=== PATIENT | female | born 1975 | race Caucasian/White ===

== ENCOUNTER 2023-02-19 13:06 | Inpatient (IN) ==
[2023-02-19] MEDS ORDERED: LABETALOL HCL IV 5 MG/ML 20ML IV STA (13:22)
[2023-02-19] MEDS ORDERED: IOVERSOL 350 MG 125mL Prefilled Syringe IV ONE (13:26)
--- NOTE | 2023-02-19 13:29 | Emergency Department Note ---
History of Present Illness General Chief complaint: Illness Stated complaint: ILLNESS, URINARY SX Time Seen by Provider: 02/19/23 13:12 History of Present Illness 47-year-old female presents emergency department with an alteration mental status and onset of confusion that started potentially yesterday but was noticed by her coworkers more today. Patient reportedly had been drinking a significant amount of water in the past day and a there were 2 large bottles of water. Patient states that she also had sex on Friday but did not have a headache or any changes in mental status after sexual intercourse. Patient denies any drug use. Patient denies having a headache denies trauma to the head denies vomiting denies abdominal pain. Patient states she had burning with urination. Is unknown why the patient continue to drink significant amount of water but she does state that she feels thirsty. Patient denies any history of diabetes Home Medications Medication Instructions Recorded Confirmed Type lisinopril 20 1 tab PO QAM 02/19/23 02/19/23 History mg-hydrochlorothiazide 12.5 mg tablet Allergies Allergy/AdvReac Type Severity Reaction Status Date / Time No Known Allergies Allergy Verified 02/19/23 14:51 Past Med/Surg History Medical History (Updated 02/19/23 @ 15:17 by DUYEN Subramanian) Electrolyte imbalance Hypokalemia Hypomagnesemia Social History Smoking Status: Current every day smoker Preferred Language: Kosovan Feels Safe at Home: Yes Immunizations: Past medical history is unknown Physical Exam Vital Signs Vital Signs - 24 hr 02/19/23 13:19 02/19/23 13:36 02/19/23 13:30 Temperature 36.5 C Temperature Source Oral Pulse Rate 103 H 96 H Pulse Rate [Apical] Respiratory Rate 13 Respiratory Effort / Characteristics Blood Pressure 178/114 H 165/108 H Blood Pressure [Left Arm] Blood Pressure Mean 135 134 Blood Pressure Mean [Left Arm] Pulse Oximetry 98 Oxygen Delivery Method Room Air Sepsis Recent Fever Within 48 Hours No Sepsis New/Unexplained Change in Mental Status N/A Sepsis Action Taken by Nursing No Action Required 02/19/23 13:30 02/19/23 13:44 02/19/23 13:45 Temperature Temperature Source Pulse Rate 100 H 96 H 91 H Pulse Rate [Apical] Respiratory Rate 18 21 23 Respiratory Effort / Characteristics Blood Pressure 165/108 H 160/113 H 157/107 H Blood Pressure [Left Arm] Blood Pressure Mean 127 128 123 Blood Pressure Mean [Left Arm] Pulse Oximetry 99 95 Oxygen Delivery Method Sepsis Recent Fever Within 48 Hours Sepsis New/Unexplained Change in Mental Status Sepsis Action Taken by Nursing 02/19/23 14:54 02/19/23 15:07 02/19/23 15:18 Temperature Temperature Source Pulse Rate 74 Pulse Rate [Apical] 75 78 Respiratory Rate 20 14 Respiratory Effort / Characteristics Non-Labored Blood Pressure Blood Pressure [Left Arm] 160/107 H Blood Pressure Mean Blood Pressure Mean [Left Arm] 124 Pulse Oximetry 97 97 97 Oxygen Delivery Method Room Air Room Air Room Air Sepsis Recent Fever Within 48 Hours Sepsis New/Unexplained Change in Mental Status Sepsis Action Taken by Nursing GENERAL: Patient is awake alert in no acute distress patient is resting comfortably and showing no signs of anxiety EYES: The conjunctivae are clear. The pupils are round and reactive. EARS, NOSE, MOUTH AND THROAT: The nose is without any evidence of any deformity. Mucous membranes are moist. Tongue is midline. NECK: The neck is nontender and supple. RESPIRATORY: Normal respiratory effort is noted there is no evidence of wheezing rhonchi or rales CARDIOVASCULAR: Regular rate and rhythm noted there no murmurs rubs or gallops normal S1 normal S2. GASTROINTESTINAL: The abdomen is soft. Abdomen is nontender. PELVIS: The Pelvis is stable. No tenderness to palpation is noted. BACK: No midline tenderness or or step-off noted range of motion in flexion extension as well as rotation no signs of muscle spasm noted MUSCULOSKELETAL/EXTREMITIES: There is no evidence of gross deformity full range of motion is noted in the hips and shoulders. SKIN: There is no obvious evidence of any rash. There are no petechiae, pallor or cyanosis noted. NEUROLOGIC: Patient is awake alert and oriented x3 strength is symmetric patellar reflexes are 2+ bilaterally Course Reevaluation(s) Reevaluation #1: Repeat examination, the patient is alert the preferential gaze to the right and she also states that she is very thirsty.; She was given 1 dose of labetalol and her blood pressure is less than 160 systolic Time: 14:17 Reevaluation #2: Patient continues to have some evidence of confusion. Patient has a right-sided gaze. Patient will track to the left side. Patient continues to state she is thirsty Time: 15:13 Consultations Consultation #1: This case was discussed with the [facility] Hospitalist for admission for what I suspect is water intoxication and alteration in mental status Time: 15:13 Administered Medications Discontinued Medications Ioversol (Ioversol 350 Mg 125ml Prefilled Syringe) 120 ml IV ONCE ONE Stop: 02/19/23 13:27 Last Admin: 02/19/23 13: Dose: 120 ml Documented By: KADY Labetalol HCl (Labetalol Hcl Iv 5 Mg/Ml 20ml) 10 mg IV NOW STA Stop: 02/19/23 13:23 Last Admin: 02/19/23 13: Dose: 10 mg Documented By: YAMIL Co-signed By: MARILEE Critical Care Time Critical Care Time: Yes Total Critical Care Time: 60 I have personally spent greater than 60 minutes of critical care time in the direct management of this patient. This includes bedside care, interpretation of diagnostic studies, and testing, discussion with consultants, patient, and family members, and other required patient management activities. These minutes are in excess of all separately billable procedures. Medical Decision Making Medical Records Attestation: I reviewed the patient's medical records. Home Medications Current Medication List: was personally reviewed by me Laboratory Data Attestation: I reviewed the patient's lab results. 02/19/23 13:20 02/19/23 13:20 Lab Results 02/19/23 02/19/23 02/19/23 Range/Units 13:20 13:20 13:20 WBC 7.53 (4.8-10.8) K/ul RBC 4.30 (4.20-5.40) M/uL Hgb 14.1 (12.0-16.0) g/dl POC Hgb (12.0-16.0) g/dl Hct 39.4 (37.0-47.0) % POC Hct (37-47) % MCV 91.6 (80.0-100.0) fL MCH 32.8 (25.0-34.0) pg MCHC 35.8 (32.0-36.0) g/dL RDW Std Deviation 42.6 (36.4-46.3) fL RDW Coeff of Ran 12.7 (11.5-14.5) % Plt Count 313 (130-400) K/uL MPV 9.0 L (9.4-12.4) fL Immature Gran % (Auto) 0.4 % Neut % (Auto) 73.6 % Lymph % (Auto) 17.3 % [place] % (Auto) 8.1 % Eos % (Auto) 0.1 % Baso % (Auto) 0.5 % Neut # (Auto) 5.54 (1.40-6.50) K/uL Lymph # (Auto) 1.30 (1.2-3.4) K/uL [place] # (Auto) 0.61 H (0.11-0.59) K/uL Eos # (Auto) 0.01 (0-0.50) K/uL Baso # (Auto) 0.04 (0-0.2) K/uL Immature Gran # (Auto) 0.03 (0.01-0.20) K/uL PT 11.4 (9.0-12.0) Seconds INR 1.0 (0.9-1.1) APTT 27.0 (21.0-31.0) Seconds PTT Ratio 1.0 POC Sodium (135-144) mmol/L Sodium 123 L (136-145) mmol/L POC Potassium (3.3-5.0) mmol/L Potassium 3.4 L (3.5-5.1) mmol/L POC Chloride (101-112) mmol/L Chloride 92 L (98-107) mmol/L Carbon Dioxide 21 (21-32) mmol/L POC Total CO2 (24-31) mmol/L Anion Gap 10 (3-11) POC Anion Gap (16-25) mmol/L POC BUN (7-18) mg/dl BUN 9 (6-23) mg/dl Creatinine 0.68 (0.6-1.2) mg/dl POC Creatinine (0.6-1.3) mg/dl Est Cr Clr Drug Dosing 86.2 ml/min Est GFR ( Amer) 122.4 ml/min Est GFR (Non-Af Amer) 105.6 ml/min BUN/Creatinine Ratio 13.2 (10-20) Glucose 117 H (70-99(Fasting)) mg/dl POC Glucose (70-99) mg/dl POC Glucose (other) (70-99) mg/dl Osmolality (280-300) mOsm/kg Calcium 8.8 (8.6-10.3) mg/dl POC Ioniz Calcium Iveth (1.12-1.32) mmol/l Magnesium 1.6 L (1.7-2.4) mg/dl Total Bilirubin 0.6 (0.2-1.0) mg/dl AST 16 (13-39) U/L ALT 7 (7-52) U/L Alkaline Phosphatase 43 (34-104) U/L Troponin I High Sens 3.2 (0-14) pg/ml Total Protein 6.9 (6.0-8.3) gm/dl Albumin 4.3 (3.4-5.0) gm/dl Globulin 2.6 (2.5-4.0) gm/dl Albumin/Globulin Ratio 1.7 (0.9-2) HCG, Qual (Negative) Urine Opiates Screen (Neg) Ur Methadone, Qual (Neg) Urine Barbiturates (Neg) Ur Phencyclidine (PCP) (Neg) U Amphetamin/Meth Scrn (Neg) MDMA (Ecstasy) Screen (Neg) U Benzodiazepines Scrn (Neg) Ur Cocaine Metabolite (Neg) U Marijuana (THC) Screen (Neg) 02/19/23 02/19/23 02/19/23 Range/Units 13:20 13:20 13:25 WBC (4.8-10.8) K/ul RBC (4.20-5.40) M/uL Hgb (12.0-16.0) g/dl POC Hgb (12.0-16.0) g/dl Hct (37.0-47.0) % POC Hct (37-47) % MCV (80.0-100.0) fL MCH (25.0-34.0) pg MCHC (32.0-36.0) g/dL RDW Std Deviation (36.4-46.3) fL RDW Coeff of Ran (11.5-14.5) % Plt Count (130-400) K/uL MPV (9.4-12.4) fL Immature Gran % (Auto) % Neut % (Auto) % Lymph % (Auto) % [place] % (Auto) % Eos % (Auto) % Baso % (Auto) % Neut # (Auto) (1.40-6.50) K/uL Lymph # (Auto) (1.2-3.4) K/uL [place] # (Auto) (0.11-0.59) K/uL Eos # (Auto) (0-0.50) K/uL Baso # (Auto) (0-0.2) K/uL Immature Gran # (Auto) (0.01-0.20) K/uL PT (9.0-12.0) Seconds INR (0.9-1.1) APTT (21.0-31.0) Seconds PTT Ratio POC Sodium (135-144) mmol/L Sodium (136-145) mmol/L POC Potassium (3.3-5.0) mmol/L Potassium (3.5-5.1) mmol/L POC Chloride (101-112) mmol/L Chloride (98-107) mmol/L Carbon Dioxide (21-32) mmol/L POC Total CO2 (24-31) mmol/L Anion Gap (3-11) POC Anion Gap (16-25) mmol/L POC BUN (7-18) mg/dl BUN (6-23) mg/dl Creatinine (0.6-1.2) mg/dl POC Creatinine (0.6-1.3) mg/dl Est Cr Clr Drug Dosing ml/min Est GFR ( Amer) ml/min Est GFR (Non-Af Amer) ml/min BUN/Creatinine Ratio (10-20) Glucose (70-99(Fasting)) mg/dl POC Glucose 143 H (70-99) mg/dl POC Glucose (other) (70-99) mg/dl Osmolality 256 L (280-300) mOsm/kg Calcium (8.6-10.3) mg/dl POC Ioniz Calcium Iveth (1.12-1.32) mmol/l Magnesium (1.7-2.4) mg/dl Total Bilirubin (0.2-1.0) mg/dl AST (13-39) U/L ALT (7-52) U/L Alkaline Phosphatase (34-104) U/L Troponin I High Sens (0-14) pg/ml Total Protein (6.0-8.3) gm/dl Albumin (3.4-5.0) gm/dl Globulin (2.5-4.0) gm/dl Albumin/Globulin Ratio (0.9-2) HCG, Qual Negative (Negative) Urine Opiates Screen (Neg) Ur Methadone, Qual (Neg) Urine Barbiturates (Neg) Ur Phencyclidine (PCP) (Neg) U Amphetamin/Meth Scrn (Neg) MDMA (Ecstasy) Screen (Neg) U Benzodiazepines Scrn (Neg) Ur Cocaine Metabolite (Neg) U Marijuana (THC) Screen (Neg) 02/19/23 02/19/23 Range/Units 13:27 14:36 WBC (4.8-10.8) K/ul RBC (4.20-5.40) M/uL Hgb (12.0-16.0) g/dl POC Hgb 15.0 (12.0-16.0) g/dl Hct (37.0-47.0) % POC Hct 44 (37-47) % MCV (80.0-100.0) fL MCH (25.0-34.0) pg MCHC (32.0-36.0) g/dL RDW Std Deviation (36.4-46.3) fL RDW Coeff of Ran (11.5-14.5) % Plt Count (130-400) K/uL MPV (9.4-12.4) fL Immature Gran % (Auto) % Neut % (Auto) % Lymph % (Auto) % [place] % (Auto) % Eos % (Auto) % Baso % (Auto) % Neut # (Auto) (1.40-6.50) K/uL Lymph # (Auto) (1.2-3.4) K/uL [place] # (Auto) (0.11-0.59) K/uL Eos # (Auto) (0-0.50) K/uL Baso # (Auto) (0-0.2) K/uL Immature Gran # (Auto) (0.01-0.20) K/uL PT (9.0-12.0) Seconds INR (0.9-1.1) APTT (21.0-31.0) Seconds PTT Ratio POC Sodium 124 L (135-144) mmol/L Sodium (136-145) mmol/L POC Potassium 3.3 (3.3-5.0) mmol/L Potassium (3.5-5.1) mmol/L POC Chloride 90 L (101-112) mmol/L Chloride (98-107) mmol/L Carbon Dioxide (21-32) mmol/L POC Total CO2 24 (24-31) mmol/L Anion Gap (3-11) POC Anion Gap 14.0 L (16-25) mmol/L POC BUN 9 (7-18) mg/dl BUN (6-23) mg/dl Creatinine (0.6-1.2) mg/dl POC Creatinine 0.7 (0.6-1.3) mg/dl Est Cr Clr Drug Dosing ml/min Est GFR ( Amer) ml/min Est GFR (Non-Af Amer) ml/min BUN/Creatinine Ratio (10-20) Glucose (70-99(Fasting)) mg/dl POC Glucose (70-99) mg/dl POC Glucose (other) 125 H (70-99) mg/dl Osmolality (280-300) mOsm/kg Calcium (8.6-10.3) mg/dl POC Ioniz Calcium Iveth 1.10 L (1.12-1.32) mmol/l Magnesium (1.7-2.4) mg/dl Total Bilirubin (0.2-1.0) mg/dl AST (13-39) U/L ALT (7-52) U/L Alkaline Phosphatase (34-104) U/L Troponin I High Sens (0-14) pg/ml Total Protein (6.0-8.3) gm/dl Albumin (3.4-5.0) gm/dl Globulin (2.5-4.0) gm/dl Albumin/Globulin Ratio (0.9-2) HCG, Qual (Negative) Urine Opiates Screen Neg (Neg) Ur Methadone, Qual Neg (Neg) Urine Barbiturates Neg (Neg) Ur Phencyclidine (PCP) Neg (Neg) U Amphetamin/Meth Scrn Neg (Neg) MDMA (Ecstasy) Screen Neg (Neg) U Benzodiazepines Scrn Neg (Neg) Ur Cocaine Metabolite Neg (Neg) U Marijuana (THC) Screen Neg (Neg) Imaging Data Attestation: I personally reviewed and interpreted this imaging study as follows : Radiologist's Impression: Chest X-Ray 02/19/23 13:19 XR chest 1V portable HISTORY: neuro deficit, acute stroke suspected COMPARISON: Chest 07/29/2011 FINDINGS: The lungs are clear. Cardiac silhouette is normal in size. No pleural effusions. No pneumothorax. IMPRESSION: No acute process. ACT 112: Negative or not required by law. Electronically signed by: Devang Ruiz M.D. 02/19/2023 2:[address] 02/19/23 13:[address] DOSE: HISTORY: neuro deficit, acute stroke suspected TECHNIQUE: Multiaxial CT images of the head were performed without the use of intravenous contrast. Automated exposure control was utilized for this study. A dose lowering technique was utilized adhering to the principles of ALARA. Comparison: None. Findings: The paranasal sinuses and mastoid air cells are clear. The calvarium a nd skull base are intact. The ventricles and sulci are within normal limits. There is no mass, hematoma, midline shift, or acute infarct. Impression: No acute intracranial abnormality. ACT 112: Negative or not required by law. Electronically signed by: Devang Ruiz M.D. 02/19/2023 2:35 PM Head CTA 02/19/23 13:19 CT angio head w con CLINICAL HISTORY: 47 years-old Female with neuro deficit, acute stroke suspected. Acute stroke like symptoms COMPARISON STUDY: Head CT of same day TECHNIQUE: Following the IV administration of 120 cc of Optiray, CT angiogram of the brain was performed from the skull base to the vertex. Images are reviewed in the axial, sagittal, and coronal planes. 3-D MIPS images are created and assessed. IV contrast was administered without complication. All measurements were obtained according to NASCET criteria. A dose lowering technique was utilized adhering to the principles of ALARA. CT DOSE: 1217.58 mGy.cm FINDINGS: CT ANGIOGRAM OF THE BRAIN: The imaged bilateral internal carotid arteries are patent. 2 mm saccular outpouching involves the left carotid terminus on image 81 series 5, likely a vascular infundibulum. The bilateral anterior and middle cerebral arteries are also patent. The vertebrobasilar system and posterior cerebral arteries are widely patent. There is no aneurysm, high-grade stenosis, or proximal branch occlusion identified. Dural sinuses appear patent. IMPRESSION: Normal CTA of the head. ACT 112: Negative or not required by law. The above report was generated using voice recognition software. It may contain grammatical, syntax or spelling errors. Electronically signed by: Minesh Dodge M.D. 02/19/2023 2:39 PM Neck CTA 02/19/23 13:19 CT ANGIOGRAPHY OF THE NECK WITH CONTRAST CLINICAL HISTORY: neuro deficit, acute stroke suspected COMPARISON STUDY: No previous studies for comparison. Technique: CT angiography of the carotid and vertebral arteries was obtained using Optiray and 3D reconstruction on an independent workstation. NASCET criteria was utilized. Automated exposure control was utilized for the study. A dose lowering technique was utilized adhering to the principles of ALARA. Findings: Visualized portions of the lung apices are unremarkable. There is no cervical lymphadenopathy. No cervical spine fracture is present. The bilateral common carotid, cervical internal carotid and vertebral arteries are patent. There is no dissection or stenosis within these vessels. There is no aneurysm within the neck. There is minimal plaque within the right carotid bifurcation. CTA of the head will be reported separately. IMPRESSION: No stenosis or dissection within the bilateral common carotid, cervical internal carotid or vertebral arteries. ACT 112: Negative or not required by law. Electronically signed by: Freddy Toledo M.D. 02/19/2023 2:36 PM ECG Data Attestation: I personally reviewed and interpreted this ECG as follows: MDM Narrative Medical decision making differential diagnosis includes stroke, intracranial hem orrhage, brain tumor, water medication, drug use, hypoglycemia, urinary tract infection Plan is to activate a stroke alert, emergently have the patient go to CT. Patient was also given 1 dose of IV labetalol due to hypertensive crisis EMS medical report was reviewed by me Impression & Plan Water intoxication, Acute confusion, Acute hyponatremia Discharge Plan Visit Data Chief Complaint: Illness Stated Complaint: ILLNESS, URINARY SX ED Provider: Eric Iyer Discharge Problem: Water intoxication, Acute confusion, Acute hyponatremia Patient Disposition: Admitted As Inpatient Forms Stand Alone Forms: My [facility] Play It Interactive Prescriptions Prescriptions: No Action lisinopril-hydrochlorothiazide 20-12.5 mg tablet 1 tab PO QAM Referrals Referrals: John Goins III, MD [Physician] -
[2023-02-19 13:41] LABS: iSTAT Creatinine 0.7 mg/dl (0.6-1.3); iSTAT Ionized Calcium 1.1 mmol/l (1.12-1.32); iSTAT Potassium 3.3 mmol/L (3.3-5.0)
[2023-02-19 13:49] LABS: Basophils # (auto) 0.04 K/uL (0-0.2); Basophils % (auto) 0.5 %; Eosinophils # (auto) 0.01 K/uL (0-0.50); Eosinophils % (auto) 0.1 %; Hematocrit (blood only) 39.4 % (37.0-47.0); Hemoglobin 14.1 g/dl (12.0-16.0); Immature Granulocytes # (auto) 0.03 K/uL (0.01-0.20); Immature Granulocytes % (auto) 0.4 %; Lymphocytes % (auto) 17.3 %; Mean Corpuscular Hemoglobin 32.8 pg (25.0-34.0); Mean Corpuscular Hgb Conc 35.8 g/dL (32.0-36.0); Mean Corpuscular Volume 91.6 fL (80.0-100.0); Monocytes # (auto) 0.61 K/uL (0.11-0.59); Monocytes % (auto) 8.1 %; Neutrophils # (auto) 5.54 K/uL (1.40-6.50); Neutrophils % (auto) 73.6 %; Platelet Count 313 K/uL (130-400); RDW Coefficient of Variation 12.7 % (11.5-14.5); RDW Standard Deviation 42.6 fL (36.4-46.3); White Blood Count 7.53 K/ul (4.8-10.8)
[2023-02-19 14:06] LABS: Troponin I High Sensitivity 3.2 pg/ml (0-14)
[2023-02-19 14:08] LABS: Prothrombin Time 11.4 Seconds (9.0-12.0)
[2023-02-19 14:25] LABS: Albumin Level 4.3 gm/dl (3.4-5.0); Bilirubin,Total 0.6 mg/dl (0.2-1.0); Calcium 8.8 mg/dl (8.6-10.3); Magnesium 1.6 mg/dl (1.7-2.4); Potassium 3.4 mmol/L (3.5-5.1)
[2023-02-19 14:31] LABS: Albumin Globulin Ratio 1.7 (0.9-2); BUN Creatinine Ratio 13.2 (10-20); Creatinine Clr Calc Pharmacy 86.2 ml/min; Est GFR (African American) 122.4 ml/min; Est GFR (Non-African American) 105.6 ml/min; Globulin 2.6 gm/dl (2.5-4.0); Total Protein 6.9 gm/dl (6.0-8.3)
--- NOTE | 2023-02-19 14:36 | CT Scan Report ---
HEAD CT NONCONTRAST CT DOSE: HISTORY: neuro deficit, acute stroke suspected TECHNIQUE: Multiaxial CT images of the head were performed without the use of intravenous contrast. A utomated exposure control was utilized for this study. A dose lowering technique was utilized adheri ng to the principles of ALARA. Comparison: None. Findings: The paranasal sinuses and mastoid air cells are clear. The calvarium and skull base are int act. The ventricles and sulci are within normal limits. There is no mass, hematoma, midline shift, or acute infarct. Impression: No acute intracranial abnormality. ACT 112: Negative or not required by law. Electronically signed by: Devang Ruiz M.D. 02/19/2023 2:35 PM
--- NOTE | 2023-02-19 14:37 | CT Scan Report ---
CT ANGIOGRAPHY OF THE NECK WITH CONTRAST CLINICAL HISTORY: neuro deficit, acute stroke suspected COMPARISON STUDY: No previous studies for comparison. Technique: CT angiography of the carotid and vertebral arteries was obtained using Optiray and 3D rec onstruction on an independent workstation. NASCET criteria was utilized. Automated exposure control was utilized for the study. A dose lowering technique was utilized adhering to the principles of ALA RA. Findings: Visualized portions of the lung apices are unremarkable. There is no cervical lymphadenopat hy. No cervical spine fracture is present. The bilateral common carotid, cervical internal carotid an d vertebral arteries are patent. There is no dissection or stenosis within these vessels. There is no aneurysm within the neck. There is minimal plaque within the right carotid bifurcation. CTA of the h ead will be reported separately. IMPRESSION: No stenosis or dissection within the bilateral common carotid, cervical internal carotid or vertebral arteries. ACT 112: Negative or not required by law. Electronically signed by: Freddy Toledo M.D. 02/19/2023 2:36 PM
--- NOTE | 2023-02-19 14:41 | CT Scan Report ---
CT angio head w con CLINICAL HISTORY: 47 years-old Female with neuro deficit, acute stroke suspected. Acute stroke lik e symptoms COMPARISON STUDY: Head CT of same day TECHNIQUE: Following the IV administration of 120 cc of Optiray, CT angiogram of the brain was perfor med from the skull base to the vertex. Images are reviewed in the axial, sagittal, and coronal planes . 3-D MIPS images are created and assessed. IV contrast was administered without complication. All me asurements were obtained according to NASCET criteria. A dose lowering technique was utilized adherin g to the principles of ALARA. CT DOSE: 1217.58 mGy.cm FINDINGS: CT ANGIOGRAM OF THE BRAIN: The imaged bilateral internal carotid arteries are patent. 2 mm saccular outpouching involves the lef t carotid terminus on image 81 series 5, likely a vascular infundibulum. The bilateral anterior and m iddle cerebral arteries are also patent. The vertebrobasilar system and posterior cerebral arteries a re widely patent. There is no aneurysm, high-grade stenosis, or proximal branch occlusion identified. Dural sinuses appear patent. IMPRESSION: Normal CTA of the head. ACT 112: Negative or not required by law. The above report was generated using voice recognition software. It may contain grammatical, syntax o r spelling errors. Electronically signed by: Minesh Dodge M.D. 02/19/2023 2:39 PM
--- NOTE | 2023-02-19 15:00 | XRay Report ---
XR chest 1V portable HISTORY: neuro deficit, acute stroke suspected COMPARISON: Chest 07/29/2011 FINDINGS: The lungs are clear. Cardiac silhouette is normal in size. No pleural effusions. No pneumot horax. IMPRESSION: No acute process. ACT 112: Negative or not required by law. Electronically signed by: Devang Ruiz M.D. 02/19/2023 2:59 PM
[2023-02-19] MEDS ORDERED: ALUMINUM/MAGNESIUM SUSP 30 ML UDC PO PRN (15:02)
[2023-02-19] MEDS ORDERED: ACETAMINOPHEN 325 MG TAB PO PRN (15:02)
[2023-02-19] MEDS ORDERED: MAGNESIUM HYDROXIDE SUSP 30 ML UDC PO PRN (15:02)
[2023-02-19] MEDS ORDERED: ONDANSETRON INJ 2 MG/ML 2 ML VIAL IV PRN (15:02)
[2023-02-19] MEDS ORDERED: POLYETHYLENE (MIRALAX) 17 GM PACK PO PRN (15:02)
--- NOTE | 2023-02-19 15:20 | History & Physical Report ---
Date of Service February 19, 2023 Assessment & Plan (1) Acute confusion: (2) Acute hyponatremia: (3) Electrolyte imbalance: (4) Hypokalemia: (5) Hypomagnesemia: (6) HTN (hypertension): Plan 47 year old presents with AMS, diaphoresis, increased thirst. No recent travel or outdoor vacations. E-lyte imbalance with Hyponatremia 124, HypoKalemia 3.4, HypoMg+ 1.6. Q 6 serum sodium, strict fluid restriction 1200mL, replace Mg+ and K+, hold Lisinopril/HCTZ as suspect Thiazide-induced hyponatremia. Head CT negative. Hcg Negative; no perimenopausal symptoms. Altered mental status: Acute hyponatremia: Suspect Thiazide-induced; takes Lisinopril/HCTZ; Hold Drinking 4 liters of water today; mental status resolving back to baseline. Serum Na+ 124; Q6 serum sodium Head CT and head/neck CTA: negative Urine NA+ 39, Urine Osmololity pending Hcg Negative; no perimenopausal symptoms. Strict Fluid restriction 1200mL/day; reassess restriction tomorrow Should Sodium not correct/worsen; consider Nephro input Electrolyte Imbalance: Hypokalemia: Hypomagnesemia: K+: 3.4; replace with 40 PO; trend in AM M.6; replace with 2 G IV; trend in AM No ectopy on ECG HTN: BP on arrival 180/100; Labetalol 10 mg IV given in ED 159/98 during my examination Takes Lisinopril/HCTZ; suspect cause of Hyponatremia; hold for now Disposition: PCP: Dr. Zuniga Code Status: Full Code VTE Prophylaxis: Lovenox SQ I spent a total of 88 minutes coordinating, documenting, and providing care for this patient excluding time spent in the performance of separately billed services. All of the aforementioned completed while collaborating with the assigned attending physician for a full treatment plan. Please see their addendum for further details. History of Present Illness Chief Complaint: increased thirst and dysuria; electrolyte imbalance Primary Care Provider: Michell Zuniga MD Ms. Curran is a 47 year old female that presents to the [facility] today via EMS after her co-workers noticed that she had altered mental status. She said this morning she had some vaginal itching thinking she had a UTI and by mid- morning she became diaphoretic, describes an increased HR and lethargic. Was hypertensive in the ED SBP > 180; Labetalol 10 mg administered x1 with positive response.Otherwise nothing abnormal with her routine over the past few weeks. On Friday she went on the second day with a man did try a new IPA beer. She did wake up dehydrated on Friday. Does follow with her PCP who has labs ordered but she has not gotten them yet. Had a recent mammogram that showed dense tissue and has a follow-up 07/19. Does not fast or follow any strict diet regimen. No chance of and has been abstinent outside of Friday for 1 year. Denies any psychiatric, cancer, stroke, heart attack, or recent illness with fevers. Denies alcohol, or recreational drug use; is a daily smoker. No perimenopausal symptoms. Abnormal labs include: Hyponatremic 124, hypokalemic 3.4, Hypomagnesemia 1.6, Ur ine Na+ 39, Urine osmolality pending. She does take Lisinopril/HCTZ for HTN. Hcg negative. On examination, no JVP, no ascites, no ectopy. She does take Lisinopril/HCTZ as an outpatient. Suspect hyponatremia related to thiazide use. Will hold HCTZ/Lisinopril and replace K+ and Mg+ with fluid restriction. Q6 Serum Sodium checks; if no improvement, consider Nephrology input. Patient will be admitted for further evaluation and management. Please see A/P for further details. Allergies Allergy/AdvReac Type Severity Reaction Status Date / Time No Known Allergies Allergy Verified 02/19/23 14:51 Home Medications Medication Instructions Recorded Confirmed Type lisinopril 20 1 tab PO QAM 02/19/23 02/19/23 History mg-hydrochlorothiazide 12.5 mg tablet Past Med/Surg History Medical History (Updated 02/19/23 @ 16:15 by DUYEN Subramanian) Electrolyte imbalance HTN (hypertension) Hypokalemia Hypomagnesemia Surgical History (Updated 02/19/23 @ 16:22 by DUYEN Subramanian) No pertinent past surgical history Family History (Updated 02/19/23 @ 16:22 by DUYEN Subramanian) Other Dyslipidemia Hypertension Social History Smoking Status: Current every day smoker Preferred Language: Lithuanian Feels Safe at Home: Yes Review of Systems Review of Systems: Neuro: (-) Falls, trauma, slurred speech HEENT: (-) SALAZAR, dizziness, dysphagia, visual or auditory changes CV: (-) CP, palpitations, swelling Resp: (-) SOB GI: (-) appetite changes, N/V/D, bowel changes : (-) urinary changes; some dysuria this AM Skin: (-) rashes Psych: (-) anxiety, depression Physical Exam Physical Exam: Neuro: AAOx4, PERRLA, no aphagia, memory changes, CNII-XII grossly intact HEENT: head normocephalic, moist mucus membranes CV: S1/S2, (-) M/G/R, (-) edema, cap refill < 3 seconds (-) JVP Resp: Lungs CTA in all shannon. On RA GI: Abdomen S/NT/ND, Ax4 bowel sounds, (-) CVA tenderness (-) Ascites Musculoskeletal: 5/5 B/L UE strength, 5/5 B/L LE strength. No gait disturbance Skin: (-) rashes , (-) erythema. Psych: euthymic mood Results & Data Results & Data Vital Signs (Past 12 Hours) Vital Signs Temp Pulse Pulse Resp BP Pulse Ox O2 Del Method 02/19/23 14:54 75 20 97 Room Air 02/19/23 13:45 91 H 23 157/107 H 95 02/19/23 13:44 96 H 21 160/113 H 02/19/23 13:30 100 H 18 165/108 H 99 02/19/23 13:30 165/108 H 02/19/23 13:36 36.5 C 96 H 13 178/114 H 98 Room Air 02/19/23 13:19 103 H Laboratory Results Short CBC 02/19/23 Range/Units 13:20 WBC 7.53 (4.8-10.8) K/ul Hgb 14.1 (12.0-16.0) g/dl Hct 39.4 (37.0-47.0) % Plt Count 313 (130-400) K/uL BMP 02/19/23 13:20 Sodium 123 L Potassium 3.4 L Chloride 92 L Carbon Dioxide 21 BUN 9 Creatinine 0.68 Glucose 117 H Calcium 8.8 Liver Function 02/19/23 Range/Units 13:20 Total Bilirubin 0.6 (0.2-1.0) mg/dl AST 16 (13-39) U/L ALT 7 (7-52) U/L Alkaline Phosphatase 43 (34-104) U/L Albumin 4.3 (3.4-5.0) gm/dl Diagnostic Findings Chest X-Ray 02/19/23 13:19 XR chest 1V portable HISTORY: neuro deficit, acute stroke suspected COMPARISON: Chest 07/29/2011 FINDINGS: The lungs are clear. Cardiac silhouette is normal in size. No pleural effusions. No pneumothorax. IMPRESSION: No acute process. ACT 112: Negative or not required by law. Electronically signed by: Devang Ruiz M.D. 02/19/2023 2:[address] 02/19/23 13:[address] DOSE: HISTORY: neuro deficit, acute stroke suspected TECHNIQUE: Multiaxial CT images of the head were performed without the use of intravenous contrast. Automated exposure control was utilized for this study. A dose lowering technique was utilized adhering to the principles of ALARA. Comparison: None. Findings: The paranasal sinuses and mastoid air cells are clear. The calvarium and skull base are intact. The ventricles and sulci are within normal limits. There is no mass, hematoma, midline shift, or acute infarct. Impression: No acute intracranial abnormality. ACT 112: Negative or not required by law. Electronically signed by: Devang Ruiz M.D. 02/19/2023 2:35 PM Head CTA 02/19/23 13:19 CT angio head w con CLINICAL HISTORY: 47 years-old Female with neuro deficit, acute stroke suspecte d. Acute stroke like symptoms COMPARISON STUDY: Head CT of same day TECHNIQUE: Following the IV administration of 120 cc of Optiray, CT angiogram of the brain was performed from the skull base to the vertex. Images are reviewed in the axial, sagittal, and coronal planes. 3-D MIPS images are created and assessed. IV contrast was administered without complication. All measurements were obtained according to NASCET criteria. A dose lowering technique was utilized adhering to the principles of ALARA. CT DOSE: 1217.58 mGy.cm FINDINGS: CT ANGIOGRAM OF THE BRAIN: The imaged bilateral internal carotid arteries are patent. 2 mm saccular outpouching involves the left carotid terminus on image 81 series 5, likely a vascular infundibulum. The bilateral anterior and middle cerebral arteries are also patent. The vertebrobasilar system and posterior cerebral arteries are widely patent. There is no aneurysm, high-grade stenosis, or proximal branch occlusion identified. Dural sinuses appear patent. IMPRESSION: Normal CTA of the head. ACT 112: Negative or not required by law. The above report was generated using voice recognition software. It may contain grammatical, syntax or spelling errors. Electronically signed by: Minesh Dodge M.D. 02/19/2023 2:39 PM Neck CTA 02/19/23 13:19 CT ANGIOGRAPHY OF THE NECK WITH CONTRAST CLINICAL HISTORY: neuro deficit, acute stroke suspected COMPARISON STUDY: No previous studies for comparison. Technique: CT angiography of the carotid and vertebral arteries was obtained using Optiray and 3D reconstruction on an independent workstation. NASCET criteria was utilized. Automated exposure control was utilized for the study. A dose lowering technique was utilized adhering to the principles of ALARA. Findings: Visualized portions of the lung apices are unremarkable. There is no cervical lymphadenopathy. No cervical spine fracture is present. The bilateral common carotid, cervical internal carotid and vertebral arteries are patent. There is no dissection or stenosis within these vessels. There is no aneurysm within the neck. There is minimal plaque within the right carotid bifurcation. CTA of the head will be reported separately. IMPRESSION: No stenosis or dissection within the bilateral common carotid, cervical internal carotid or vertebral arteries. ACT 112: Negative or not required by law. Electronically signed by: Freddy Toledo M.D. 02/19/2023 2:36 PM Code Status & VTE Plan Code Status Full Code in the event of cardiac or respiratory arrest VTE Prophylaxis Plan VTE Prophylaxis will be ordered: Yes Supervising Physician Co-Signing Physician Notes Attending addendum: The patient was seen and examined in telemetry unit She was sent in with change in mental status at workplace with diaphoresis , tachycardia and lethargy Has been drinking more water recently but denies any fever and or chills No significant dysuria and no GI issues denies any neurological symptoms On examination Anxious and sweaty No tachycardia Chest-clear to auscultate bilaterally Heart-S1, [id number] Abdomen-benign Extremities-no edema HHA-alert, awake and oriented x3. No focal sensory or motor deficit appreciated Her admission labs, EKG and imaging studies reviewed Has high blood pressure and has been on lisinopril hydrochlorothiazide with recent increase in water intake Sodium level is noted to be low at 124 in the emergency room with urine sodium of 39 Likely secondary to thiazide induced hyponatremia complicated by high volume water intake Will DC lisinopril hydrochlorothiazide combination Restrict fluid to 1200 mL and monitor PRP Agree with assessment plan as outlined above by Buffy Gabriel
--- NOTE | 2023-02-19 15:22 | Electrocardiogram Report ---
Test Reason : Blood Pressure : / mmHG Vent. Rate : 097 BPM Atrial Rate : 097 BPM P-R Int : 166 ms QRS Dur : 092 ms QT Int : 354 ms P-R-T Axes : 073 063 037 degrees QTc Int : 449 ms Normal sinus rhythm Left atrial enlargement Diffuse Minor Nonspecific ST abnormality Abnormal ECG When compared with ECG of 29-JUL-2011 12:57, Nonspecific ST abnormality now present Confirmed by Negro Tang ([id number]) on 02/19/2023 3:21:43 PM Referred By: Confirmed By:Negro Tang
[2023-02-19 15:28] LABS: Pregnancy Test, Serum Negative (Negative)
[2023-02-19 15:37] LABS: Amphetamines+Metham, Urine Neg (Neg); Barbiturates, Urine Neg (Neg); Benzodiazepine, Urine Neg (Neg); Cocaine, Urine Neg (Neg); MDMA (Ecstacy), Urine Neg (Neg); Methadone, Urine Neg (Neg); Opiate, Urine Neg (Neg); Phencyclidine, Urine Neg (Neg)
[2023-02-19 15:59] LABS: Appearance Urine Clear (Clear); Bacteria Urine Automated Negative (Negative); Bilirubin Urine Negative (Negative); Blood Urine 2+ (Negative); Cast Urine Automated 0 /lpf (0-5); Color Urine Yellow; Epithelial Cell Urine Auto 20-30 /lpf (0-5); Glucose Urine UA Negative (Negative); Ketones Urine Negative (Negative); Leukocyte Esterase Urine 2+ (Negative); Nitrite Urine Negative (Negative); Protein Urine Negative (Negative); Specific Gravity Urine 1.021 (1.000-1.030); Urobilinogen Urine Negative (Negative)
[2023-02-19] MEDS ORDERED: POTASSIUM CHLORIDE CRTAB 20 MEQ TABCR PO STA (16:08)
[2023-02-19 16:27] LABS: Estimated Average Glucose 108 mg/dl; Hemoglobin A1C 5.4 % (4.5-5.6)
[2023-02-19] MEDS: MAGNESIUM SULFATE / D5W 1 GM/100 ML BAG IV SCH ×2 (16:48→18:32)
[2023-02-20 07:04] LABS: Hematocrit (blood only) 42.4 % (37.0-47.0); Hemoglobin 14.9 g/dl (12.0-16.0); Mean Corpuscular Hemoglobin 32.9 pg (25.0-34.0); Mean Corpuscular Hgb Conc 35.1 g/dL (32.0-36.0); Mean Corpuscular Volume 93.6 fL (80.0-100.0); Mean Platelet Volume 8.8 fL (9.4-12.4); Platelet Count 310 K/uL (130-400); RDW Standard Deviation 44.7 fL (36.4-46.3); Red Blood Count 4.53 M/uL (4.20-5.40); White Blood Count 5.87 K/ul (4.8-10.8)
[2023-02-20 07:22] LABS: Albumin Globulin Ratio 1.5 (0.9-2); Albumin Level 4.1 gm/dl (3.4-5.0); BUN Creatinine Ratio 8.9 (10-20); Bilirubin,Total 0.7 mg/dl (0.2-1.0); Calcium 9.4 mg/dl (8.6-10.3); Est GFR (African American) 104.8 ml/min; Est GFR (Non-African American) 90.4 ml/min; Globulin 2.7 gm/dl (2.5-4.0); Potassium 4.4 mmol/L (3.5-5.1); Total Protein 6.8 gm/dl (6.0-8.3)
--- NOTE | 2023-02-20 07:38 | Electrocardiogram Report ---
Test Reason : Blood Pressure : / mmHG Vent. Rate : 070 BPM Atrial Rate : 070 BPM P-R Int : 150 ms QRS Dur : 090 ms QT Int : 402 ms P-R-T Axes : 077 067 066 degrees QTc Int : 434 ms Normal sinus rhythm Normal ECG When compared with ECG of 19-FEB-2023 13:22, Diffuse Nonspecific ST abnormality no longer present Confirmed by Negro Tang ([id number]) on 02/20/2023 7:38:01 AM Referred By: REFERRED SELF Confirmed By:Negro Tang
[2023-02-20] MEDS ORDERED: LISINOPRIL/HCTZ 20/12.5MG 1 TAB TAB PO SCH (09:00)
[2023-02-20] MEDS ORDERED: DEXTROSE 5% 500 ML IV SCH (10:15)
[2023-02-20] MEDS: amLODIPine BESYLATE 5 MG TAB PO SCH (10:19)
--- NOTE | 2023-02-20 10:49 | Nephrology Consultation ---
Date of Consultation February 20, 2023 Assessment & Plan (1) Acute hyponatremia: She was drinking a lot of liquid and is showing up as low urine osmolarity. However she does have some problem with full urinary dilution and as result she has acute hyponatremia significantly worsened by excessive fluid intake and concomitant use of hydrochlorothiazide. She does not necessarily need a full fluid restriction but needs to drink sensible amount. We will limit to 1800 mL/day. Hydrochlorothiazide has to be stopped permanently. She cannot be on any other thiazide diuretics either. If she ever needs any diuretics she can be on loop diuretics Sodium did correct slightly faster than would like. We will give 500 mL of D5 water and then stop. Next blood work can be done at 5 PM and then in the morning. (2) Acute confusion: Confusion happened very suddenly which makes me believe hyponatremia happened very suddenly also. And now with serum sodium almost normal she feels completely back to normal (3) Electrolyte imbalance: Also had hypokalemia and hypomagnesemia as well as hypocalcemia. It seems all the electrolytes are better. check everything again later this afternoon (4) HTN (hypertension): She cannot be on hydrochlorothiazide. She can be restarted on lisinopril. She had high blood pressure yesterday but at this point she has completely normal blood pressure History of Present Illness Reason for Consultation: Hyponatremia Attending Physician: Jordan Laura MD History of Present Illness 47-year-old female who presented to the hospital yesterday because of acute confusion , inability to think and just acting very strangely as per her coworkers. She was found to have very low sodium of 123. She does not have history of hyponatremia even though she has been on hydrochlorothiazide for a few years now. However no recent blood work. She is also drinking massive amounts of liquid. On detailed dietary interview she is drinking about 150 ounces of water as well as around 40 ounce of coffee giving roughly 200 ounce of liquid per day. Yesterday she had some vaginal itching thinking she had a UTI and by mid-morning she became diaphoretic.she felt palpitation and was very lethargic. In the emergency see was hypertensive in the ED SBP > 180. Labetalol 10 mg administered x1 with positive response. Her blood pressure is completely normal now. She was also found to have low magnesium and low calcium and low potassium and her initial blood work. She received normal saline and this morning sodium is 133 and she feels almost 100% back to baseline. She is making urine. At this point of time she is not receiving any normal saline. Review of system-----as detailed in HPI understated otherwise 12 system reviewed and negative. Allergies Allergy/AdvReac Type Severity Reaction Status Date / Time No Known Allergies Allergy Verified 02/19/23 14:51 Home Medications Medication Instructions Recorded Confirmed Type lisinopril 20 1 tab PO QAM 02/19/23 02/19/23 History mg-hydrochlorothiazide 12.5 mg tablet Patient History Medical History Electrolyte imbalance HTN (hypertension) Hypokalemia Hypomagnesemia Surgical History No pertinent past surgical history Family History Other Dyslipidemia Hypertension Social History Smoking Status: Current every day smoker Cigarettes Per Day: 1 pack; Do You Dip or Chew Tobacco: No; Tobacco Cessation Education Requested by Patient: No Hx Alcohol Use: Yes Alcohol type: beer Hx Substance Use: No Preferred Language: South Korean Communication Ability: Effective Senior Network Administrator Required: No Beliefs That Will Affect Care: None Current Living Situation: Alone Other Information That Helps Us Care for You: No Feels Safe at Home: Yes Safety Concerns: Feels Safe At This Time Assistive Devices: Glasses Physical Exam Physical Exam: Awake alert oriented x3 normal speech and no respiratory distress Neck: Neck is supple no JVD Respiratory: Chest bilateral clear to auscultation Cardiovascular: Regular rate and rhythm no murmur heard and no edema Gastrointestinal (Abdomen): Abdomen is soft and nontender Skin: No rashes noted Results & Data Vital Signs (Past 12 Hours) Vital Signs Temp Pulse Pulse Resp BP Pulse Ox O2 Del Method 02/20/23 07:57 37.0 C 66 18 118/63 100 Room Air 02/20/23 04:20 36.8 C 75 18 130/78 95 Room Air 02/19/23 22:53 78 02/19/23 23:25 37.0 C 64 18 145/89 H 98 Room Air Laboratory Results Sodium 123 on admission and this morning is 133 urine osmolarity 179 and urine sodium 39
[2023-02-20 12:33] LABS: Calcium 9.4 mg/dl (8.6-10.3); Creatinine Clr Calc Pharmacy 73.7 ml/min; Est GFR (African American) 111.6 ml/min; Est GFR (Non-African American) 96.3 ml/min; Potassium 4.1 mmol/L (3.5-5.1)
--- NOTE | 2023-02-20 15:00 | Hospitalist Progress Note ---
Date of Service February 20, 2023 Assessment & Plan (1) Acute confusion: (2) Acute hyponatremia: (3) Electrolyte imbalance: (4) Hypokalemia: (5) Hypomagnesemia: (6) HTN (hypertension): Plan Per admitting service notes with addendum: 47 year old presents with AMS, diaphoresis, increased thirst. No recent travel or outdoor vacations. E-lyte imbalance with Hyponatremia 124, HypoKalemia 3.4, HypoMg+ 1.6. Q 6 serum sodium, strict fluid restriction 1200mL, replace Mg+ and K+, hold Lisinopril/HCTZ as suspect Thiazide-induced hyponatremia. Head CT negative. Hcg Negative; no perimenopausal symptoms. ACUTE ENCEPHALOPATHY SECONDARY TO ACUTE HYPONATREMIA Secondary to excessive fluid intake, HCTZ use Suspect Thiazide-induced; takes Lisinopril/HCTZ; Hold Drinking 4 liters of water today; mental status resolving back to baseline. Sodium from 124 today 133 Nephrology service consulted D5 water ordered to prevent overcorrection of hyponatremia today Repeat BMP at 5 PM Fluid restriction 1800 cc/day Stop HCTZ HYPOKALEMIA HYPOMAGNESEMIA Resolved HYPERTENSION HCTZ discontinued Amlodipine 5 mg daily added Continue usual lisinopril Monitor blood pressure closely Disposition: Anticipate discharge to home medically stable plan of care discussed with patient in detail and at length all questions answered She is understanding, agreeable, comfortable with the plan of care Admission and Anticipated Discharge Date Admission Date: February 19, 2023 Subjective Follow-up for acute hyponatremia, etc. Seen resting in bed, comfortable, not in distress Awake, alert, oriented x3, answers all questions appropriately States she feels much better overall Recalls being confused yesterday Denies headache, nausea vomiting abdominal pain No other new symptoms Review of Systems Review of Systems: all noted and negative except for above Physical Exam Physical Exam: General- oriented x 3, not in distress, speaks in sentences with no effort or accessory muscle use Head- atraumatic Eyes- PERRL, EOMI, anicteric ENT- oropharynx clear Neck- supple, no JVD, no adenopathy, no thyromegaly; carotids +2/2, no bruits appreciated Lungs- clear to auscultation bilaterally, no rales/wheezes Heart- normal rate, regular rhythm; no murmur, no gallop, no rub appreciated Abdomen- normal bowel sounds, nondistended, soft, nontender, no masses or hepatosplenomegaly Extremities- no pretibial edema, no calf tenderness; peripheral pulses intact Neuro- alert, oriented x 3; CN 2-12 grossly intact; motor 5/5 bilaterally;sensation 100% on all extremities; no other gross focal neurologic deficits Skin- warm & dry Results & Data Results & Data Vital Signs (Past 12 Hours) Vital Signs Temp Pulse Resp BP Pulse Ox O2 Del Method 02/20/23 11:19 36.5 C 61 12 120/81 96 Room Air 02/20/23 07:57 37.0 C 66 18 118/63 100 Room Air 02/20/23 04:20 36.8 C 75 18 130/78 95 Room Air all noted and reviewed including below
[2023-02-20 17:45] LABS: BUN Creatinine Ratio 17.3 (10-20); Calcium 9.7 mg/dl (8.6-10.3); Creatinine Clr Calc Pharmacy 73.7 ml/min; Est GFR (African American) 111.6 ml/min; Est GFR (Non-African American) 96.3 ml/min; Magnesium 2.2 mg/dl (1.7-2.4); Potassium 4.3 mmol/L (3.5-5.1)
[2023-02-21 07:41] LABS: BUN Creatinine Ratio 16.9 (10-20); Calcium 9.5 mg/dl (8.6-10.3); Creatinine Clr Calc Pharmacy 77.9 ml/min; Est GFR (African American) 119.2 ml/min; Est GFR (Non-African American) 102.9 ml/min; Potassium 4.1 mmol/L (3.5-5.1)
--- NOTE | 2023-02-21 07:53 | Electrocardiogram Report ---
Test Reason : Blood Pressure : / mmHG Vent. Rate : 069 BPM Atrial Rate : 069 BPM P-R Int : 162 ms QRS Dur : 086 ms QT Int : 372 ms P-R-T Axes : 069 069 057 degrees QTc Int : 398 ms Normal sinus rhythm Normal ECG When compared with ECG of 20-FEB-2023 05:22, No significant change was found Confirmed by Negro Tang ([id number]) on 02/21/2023 7:52:49 AM Referred By: REFERRED SELF Confirmed By:Negro Tang
[2023-02-21] MEDS: amLODIPine BESYLATE 5 MG TAB PO SCH (09:25)
--- NOTE | 2023-02-21 17:03 | Discharge Summary ---
Discharge Summary Date of Service February 21, 2023 delayed entry date of service noted above Notes For Next Care Provider Medication Changes From Visit STOP HCTZ. YOUR NEW MEDICATION INCLUDE: AMLODIPINE 5 MG DAILY-FOR HIGH BLOOD PRESSURE LISINOPRIL 20MG DAILY- NEEDED IF BLOOD PRESSURE IS PERSISTENTLY > 140 (TOP NUMBER) Admission HPI Per Admitting Provider Ms. Curran is a 47 year old female that presents to the [facility] today via EMS after her co-workers noticed that she had altered mental status. She said this morning she had some vaginal itching thinking she had a UTI and by mid- morning she became diaphoretic, describes an increased HR and lethargic. Was hypertensive in the ED SBP > 180; Labetalol 10 mg administered x1 with positive response.Otherwise nothing abnormal with her routine over the past few weeks. On Friday she went on the second day with a man did try a new IPA beer. She did wake up dehydrated on Friday. Does follow with her PCP who has labs ordered but she has not gotten them yet. Had a recent mammogram that showed dense tissue and has a follow-up 07/19. Does not fast or follow any strict diet regimen. No chance of and has been abstinent outside of Friday for 1 year. Denies any psychiatric, cancer, stroke, heart attack, or recent illness with fevers. Denies alcohol, or recreational drug use; is a daily smoker. No perimenopausal symptoms. Abnormal labs include: Hyponatremic 124, hypokalemic 3.4, Hypomagnesemia 1.6, Urine Na+ 39, Urine osmolality pending. She does take Lisinopril/HCTZ for HTN. Hcg negative. On examination, no JVP, no ascites, no ectopy. She does take Lisinopril/HCTZ as an outpatient. Suspect hyponatremia related to thiazide use. Will hold HCTZ/Lisinopril and replace K+ and Mg+ with fluid restriction. Q6 Serum Sodium checks; if no improvement, consider Nephrology input. Patient will be admitted for further evaluation and management. Please see A/P for further details. Admission Exam Per Admitting Provider Neuro: AAOx4, PERRLA, no aphagia, memory changes, CNII-XII grossly intact HEENT: head normocephalic, moist mucus membranes CV: S1/S2, (-) M/G/R, (-) edema, cap refill < 3 seconds (-) JVP Resp: Lungs CTA in all shannon. On RA GI: Abdomen S/NT/ND, Ax4 bowel sounds, (-) CVA tenderness (-) Ascites Musculoskeletal: 5/5 B/L UE strength, 5/5 B/L LE strength. No gait disturbance Skin: (-) rashes , (-) erythema. Psych: euthymic mood Principal Dx & Hospital Course #1 = Principal Diagnosis (1) Acute confusion: (2) Acute hyponatremia: (3) Electrolyte imbalance: (4) Hypokalemia: (5) Hypomagnesemia: (6) HTN (hypertension): Plan Per admitting service notes with addendum: 47 year old presents with AMS, diaphoresis, increased thirst. No recent travel or outdoor vacations. E-lyte imbalance with Hyponatremia 124, HypoKalemia 3.4, HypoMg+ 1.6. Q 6 serum sodium, strict fluid restriction 1200mL, replace Mg+ and K+, hold Lisinopril/HCTZ as suspect Thiazide-induced hyponatremia. Head CT negative. Hcg Negative; no perimenopausal symptoms. ACUTE ENCEPHALOPATHY SECONDARY TO ACUTE HYPONATREMIA Secondary to excessive fluid intake, HCTZ use Suspect Thiazide-induced; takes Lisinopril/HCTZ; Hold Drinking 4 liters of water today; mental status resolving back to baseline. Sodium from 124 today 133 Nephrology service consulted D5 water ordered to prevent overcorrection of hyponatremia Sodium level on discharge 133 Fluid restriction 1800 cc/day Stop HCTZ Repeat BMP on follow-up with primary care physician this coming week HYPOKALEMIA HYPOMAGNESEMIA Resolved HYPERTENSION HCTZ discontinued Amlodipine 5 mg daily started, blood pressure at goal Advised to resume lisinopril 20 mg daily if systolic blood pressure is more than 140 Discharge Exam General- oriented x 3, not in distress, speaks in sentences with no effort or accessory muscle use Head- atraumatic Eyes- PERRL, EOMI, anicteric ENT- oropharynx clear Neck- supple, no JVD, no adenopathy, no thyromegaly; carotids +2/2, no bruits appreciated Lungs- clear to auscultation bilaterally, no rales/wheezes Heart- normal rate, regular rhythm; no murmur, no gallop, no rub appreciated Abdomen- normal bowel sounds, nondistended, soft, nontender, no masses or hepatosplenomegaly Extremities- no pretibial edema, no calf tenderness; peripheral pulses intact Neuro- alert, oriented x 3; CN 2-12 grossly intact; motor 5/5 bilaterally;sensation 100% on all extremities; no other gross focal neurologic deficits Skin- warm & dry Updated Medication List Medication Instructions Recorded Confirmed Type amlodipine 5 mg tablet (Norvasc) 5 mg PO QAM 30 days #30 tabs 02/21/23 Rx lisinopril 20 mg tablet 20 mg PO DAILY 30 days #30 tabs 02/21/23 Rx Hospital Stay Data Consultations 02/19/23 14:56 ED Decision to Admit Stat 02/20/23 07:49 Consult Nephrology Routine Diagnostic Imagining Performed Laboratory Results WBC 5.87 K/ul (4.8-10.8) 02/20/23 06:05 RBC 4.53 M/uL (4.20-5.40) 02/20/23 06:05 Hgb 14.9 g/dl (12.0-16.0) 02/20/23 06:05 POC Hgb 15.0 g/dl (12.0-16.0) 02/19/23 13:27 Hct 42.4 % (37.0-47.0) 02/20/23 06:05 POC Hct 44 % (37-47) 02/19/23 13:27 MCV 93.6 fL (80.0-100.0) 02/20/23 06:05 MCH 32.9 pg (25.0-34.0) 02/20/23 06:05 MCHC 35.1 g/dL (32.0-36.0) 02/20/23 06:05 RDW Std Deviation 44.7 fL (36.4-46.3) 02/20/23 06:05 RDW Coeff of Ran 13.0 % (11.5-14.5) 02/20/23 06:05 Plt Count 310 K/uL (130-400) 02/20/23 06:05 MPV 8.8 fL (9.4-12.4) L 02/20/23 06:05 Immature Gran % (Auto) 0.4 % 02/19/23 13:20 Neut % (Auto) 73.6 % 02/19/23 13:20 Lymph % (Auto) 17.3 % 02/19/23 13:20 [place] % (Auto) 8.1 % 02/19/23 13:20 Eos % (Auto) 0.1 % 02/19/23 13:20 Baso % (Auto) 0.5 % 02/19/23 13:20 Neut # (Auto) 5.54 K/uL (1.40-6.50) 02/19/23 13:20 Lymph # (Auto) 1.30 K/uL (1.2-3.4) 02/19/23 13:20 Woods # (Auto) 0.61 K/uL (0.11-0.59) H 02/19/23 13:20 Eos # (Auto) 0.01 K/uL (0-0.50) 02/19/23 13:20 Baso # (Auto) 0.04 K/uL (0-0.2) 02/19/23 13:20 Immature Gran # (Auto) 0.03 K/uL (0.01-0.20) 02/19/23 13:20 PT 11.4 Seconds (9.0-12.0) 02/19/23 13:20 INR 1.0 (0.9-1.1) 02/19/23 13:20 APTT 27.0 Seconds (21.0-31.0) 02/19/23 13:20 PTT Ratio 1.0 02/19/23 13:20 POC Sodium 124 mmol/L (135-144) L 02/19/23 13:27 Sodium 133 mmol/L (136-145) L 02/21/23 05:51 POC Potassium 3.3 mmol/L (3.3-5.0) 02/19/23 13:27 Potassium 4.1 mmol/L (3.5-5.1) 02/21/23 05:51 POC Chloride 90 mmol/L (101-112) L 02/19/23 13:27 Chloride 104 mmol/L (98-107) 02/21/23 05:51 Carbon Dioxide 25 mmol/L (21-32) 02/21/23 05:51 POC Total CO2 24 mmol/L (24-31) 02/19/23 13:27 Anion Gap 4 (3-11) 02/21/23 05:51 POC Anion Gap 14.0 mmol/L (16-25) L 02/19/23 13:27 POC BUN 9 mg/dl (7-18) 02/19/23 13:27 BUN 12 mg/dl (6-23) 02/21/23 05:51 Creatinine 0.71 mg/dl (0.6-1.2) 02/21/23 05:51 POC Creatinine 0.7 mg/dl (0.6-1.3) 02/19/23 13:27 Est Cr Clr Drug Dosing 77.9 ml/min 02/21/23 05:51 Est GFR ( Amer) 119.2 ml/min 02/21/23 05:51 Est GFR (Non-Af Amer) 102.9 ml/min 02/21/23 05:51 BUN/Creatinine Ratio 16.9 (10-20) 02/21/23 05:51 Glucose 85 mg/dl (70-99(Fasting)) 02/21/23 05:51 POC Glucose 143 mg/dl (70-99) H 02/19/23 13:25 POC Glucose (other) 125 mg/dl (70-99) H 02/19/23 13:27 Estimat Average Glucose 108 mg/dl 02/19/23 13:20 Hemoglobin A1c 5.4 % (4.5-5.6) 02/19/23 13:20 Osmolality 256 mOsm/kg (280-300) L 02/19/23 13:20 Calcium 9.5 mg/dl (8.6-10.3) 02/21/23 05:51 POC Ioniz Calcium [place] 1.10 mmol/l (1.12-1.32) L 02/19/23 13:27 Ionized Calcium 1.22 mmol/L (1.12-1.32) 02/20/23 17:06 Magnesium 2.2 mg/dl (1.7-2.4) 02/20/23 17:06 Total Bilirubin 0.7 mg/dl (0.2-1.0) 02/20/23 06:05 AST 12 U/L (13-39) L 02/20/23 06:05 ALT 6 U/L (7-52) L 02/20/23 06:05 Alkaline Phosphatase 42 U/L (34-104) 02/20/23 06:05 Troponin I High Sens 3.2 pg/ml (0-14) 02/19/23 13:20 Total Protein 6.8 gm/dl (6.0-8.3) 02/20/23 06:05 Albumin 4.1 gm/dl (3.4-5.0) 02/20/23 06:05 Globulin 2.7 gm/dl (2.5-4.0) 02/20/23 06:05 Albumin/Globulin Ratio 1.5 (0.9-2) 02/20/23 06:05 HCG, Qual Negative (Negative) 02/19/23 13:20 Urine Color Yellow 02/19/23 14:36 Urine Appearance Clear (Clear) 02/19/23 14:36 Urine pH 7.0 (4.5-7.5) 02/19/23 14:36 Ur Specific [place] 1.021 (1.000-1.030) 02/19/23 14:36 Urine Protein Negative (Negative) 02/19/23 14:36 Urine Glucose (UA) Negative (Negative) 02/19/23 14:36 Urine Ketones Negative (Negative) 02/19/23 14:36 Urine Blood 2+ (Negative) H 02/19/23 14:36 Urine Nitrite Negative (Negative) 02/19/23 14:36 Urine Bilirubin Negative (Negative) 02/19/23 14:36 Urine Urobilinogen Negative (Negative) 02/19/23 14:36 Ur Leukocyte Esterase 2+ (Negative) H 02/19/23 14:36 Urine WBC (Auto) 1-5 /hpf (0-5) 02/19/23 14:36 Urine RBC (Auto) 5-10 /hpf (0-4) H 02/19/23 14:36 U Hyaline Cast (Auto) 0 /lpf (0-5) 02/19/23 14:36 U Epithel Cells (Auto) 20-30 /lpf (0-5) H 02/19/23 14:36 Urine Bacteria (Auto) Negative (Negative) 02/19/23 14:36 Urine Osmolality 179 mOsm/kg (500-800) L 02/19/23 14:36 Ur Random Sodium 39 mmol/L 02/19/23 14:36 Urine Opiates Screen Neg (Neg) 02/19/23 14:36 Ur Methadone, Qual Neg (Neg) 02/19/23 14:36 Urine Barbiturates Neg (Neg) 02/19/23 14:36 Ur Phencyclidine (PCP) Neg (Neg) 02/19/23 14:36 U Amphetamin/Meth Scrn Neg (Neg) 02/19/23 14:36 MDMA (Ecstasy) Screen Neg (Neg) 02/19/23 14:36 U Benzodiazepines Scrn Neg (Neg) 02/19/23 14:36 Ur Cocaine Metabolite Neg (Neg) 02/19/23 14:36 U Marijuana (THC) Screen Neg (Neg) 02/19/23 14:36 Impressions Chest X-Ray 02/19/23 13:19 XR chest 1V portable HISTORY: neuro deficit, acute stroke suspected COMPARISON: Chest 07/29/2011 FINDINGS: The lungs are clear. Cardiac silhouette is normal in size. No pleural effusions. No pneumothorax. IMPRESSION: No acute process. ACT 112: Negative or not required by law. Electronically signed by: Devang Ruiz M.D. 02/19/2023 2:[address] 02/19/23 13:[address] DOSE: HISTORY: neuro deficit, acute stroke suspected TECHNIQUE: Multiaxial CT images of the head were performed without the use of intravenous contrast. Automated exposure control was utilized for this study. A dose lowering technique was utilized adhering to the principles of ALARA. Comparison: None. Findings: The paranasal sinuses and mastoid air cells are clear. The calvarium and skull base are intact. The ventricles and sulci are within normal limits. There is no mass, hematoma, midline shift, or acute infarct. Impression: No acute intracranial abnormality. ACT 112: Negative or not required by law. Electronically signed by: Devang Ruiz M.D. 02/19/2023 2:35 PM Head CTA 02/19/23 13:19 CT angio head w con CLINICAL HISTORY: 47 years-old Female with neuro deficit, acute stroke suspected. Acute stroke like symptoms COMPARISON STUDY: Head CT of same day TECHNIQUE: Following the IV administration of 120 cc of Optiray, CT angiogram of the brain was performed from the skull base to the vertex. Images are reviewed in the axial, sagittal, and coronal planes. 3-D MIPS images are created and assessed. IV contrast was administered without complication. All measurements were obtained according to NASCET criteria. A dose lowering technique was utilized adhering to the principles of ALARA. CT DOSE: 1217.58 mGy.cm FINDINGS: CT ANGIOGRAM OF THE BRAIN: The imaged bilateral internal carotid arteries are patent. 2 mm saccular outpouching involves the left carotid terminus on image 81 series 5, likely a vascular infundibulum. The bilateral anterior and middle cerebral arteries are also patent. The vertebrobasilar system and posterior cerebral arteries are widely patent. There is no aneurysm, high-grade stenosis, or proximal branch occlusion identified. Dural sinuses appear patent. IMPRESSION: Normal CTA of the head. ACT 112: Negative or not required by law. The above report was generated using voice recognition software. It may contain grammatical, syntax or spelling errors. Electronically signed by: Minesh Dodge M.D. 02/19/2023 2:39 PM Neck CTA 02/19/23 13:19 CT ANGIOGRAPHY OF THE NECK WITH CONTRAST CLINICAL HISTORY: neuro deficit, acute stroke suspected COMPARISON STUDY: No previous studies for comparison. Technique: CT angiography of the carotid and vertebral arteries was obtained using Optiray and 3D reconstruction on an independent workstation. NASCET criteria was utilized. Automated exposure control was utilized for the study. A dose lowering technique was utilized adhering to the principles of ALARA. Findings: Visualized portions of the lung apices are unremarkable. There is no cervical lymphadenopathy. No cervical spine fracture is present. The bilateral common carotid, cervical internal carotid and vertebral arteries are patent. There is no dissection or stenosis within these vessels. There is no aneurysm within the neck. There is minimal plaque within the right carotid bifurcation. CTA of the head will be reported separately. IMPRESSION: No stenosis or dissection within the bilateral common carotid, cervical internal carotid or vertebral arteries. ACT 112: Negative or not required by law. Electronically signed by: Freddy Toledo M.D. 02/19/2023 2:36 PM Pending Results Patient Have Any Pending Studies at Discharge: Yes Discharge Instructions Given to Patient (Per Discharging Provider) PLEASE REFER TO YOUR NEW MEDICATION LIST AND FOLLOW INSTRUCTIONS CAREFULLY. STOP HCTZ. YOUR NEW MEDICATION INCLUDE: AMLODIPINE 5 MG DAILY-FOR HIGH BLOOD PRESSURE LISINOPRIL 20MG DAILY- NEEDED IF BLOOD PRESSURE IS PERSISTENTLY > 140 (TOP N UMBER) LIMIT YOUR TOTAL FLUID INTAKE TO 1800 L/DAY. PLEASE CALL YOUR PRIMARY CARE PHYSICIAN OR RETURN TO THE ER IF WITH WORSENING OF SYMPTOMS, INCLUDING Weakness, confusion, etc. FOLLOW UP WITH PRIMARY CARE PHYSICIAN OUTLINED ABOVE. Total Time Total Time Spent Total Time Spent (In Minutes): > 30 minutes
== END 2023-02-21 10:40 | disposition home or self-care (01) | DRG 640 ==
LOC: ED 13:06 → 2S 15:02 → SUATTDRO 15:02 → 2S 16:12